=== PATIENT | female | born 1995 | race African-American/Black ===

== ENCOUNTER 2018-05-10 15:17 | Observation (INO) | payer MEDICAID ==
[~2018-05-10] VITALS: Ht 170.2 cm; Wt 98.0 kg
[2018-05-10 16:50] LABS: CLARITY URINE CLOUDY (CLEAR); COLOR URINE YELLOW (YELLOW); KETONES URINE 3+ (NEGATIVE); LEUKOCYTE ESTERASE URINE 2+ (NEGATIVE); NITRITE URINE NEGATIVE (NEGATIVE); OCCULT BLOOD URINE NEGATIVE (NEGATIVE); PROTEIN URINE 1+ (NEGATIVE); SPECIFIC GRAVITY URINE 1.029 (1.005-1.030)
[2018-05-10] MEDS ORDERED: LACTATED RINGERS 1,000 ML IV SCH (17:45)
[2018-05-10] MEDS ORDERED: CEFAZOLIN 2,000 MG in DEXT 5% WATER 100 ML IV SCH (17:45)
[2018-05-10] MEDS ORDERED: ACETAMINOPHEN 500MG TABLET PO NR (20:30)
== END 2018-05-10 20:55 | disposition home or self-care (01) ==
LOC: 8 EST LDRP 15:17
PROVIDERS: ADMIT Obstetrics & Gynecology; ATTEND Obstetrics & Gynecology
DX: O26.893 Other specified pregnancy related conditions, third trimester (principal); R10.30 Lower abdominal pain, unspecified; M54.5 Low back pain; Z3A.29 29 weeks gestation of pregnancy
CPT/HCPCS: 76805; 76818; 81003; 96365; 99281; G0378; J0690; J7060; 96360; 96361

== ENCOUNTER 2018-05-15 13:08 | Observation (INO) | payer MEDICAID ==
[~2018-05-15] VITALS: Ht 170.2 cm; Wt 120.7 kg
[2018-05-15] MEDS ORDERED: PNV1TABL50 PO (14:09)
[2018-05-15] MEDS ORDERED: RANI150C12 PO (14:09)
[2018-05-15 15:03] LABS: CLARITY URINE CLEAR (CLEAR); COLOR URINE AMBER (YELLOW); KETONES URINE TRACE (NEGATIVE); LEUKOCYTE ESTERASE URINE NEGATIVE (NEGATIVE); NITRITE URINE NEGATIVE (NEGATIVE); OCCULT BLOOD URINE 2+ (NEGATIVE); PROTEIN URINE 1+ (NEGATIVE); SPECIFIC GRAVITY URINE 1.031 (1.005-1.030)
== END 2018-05-15 15:45 | disposition home or self-care (01) ==
LOC: 8 EST LDRP 13:08
PROVIDERS: ADMIT Specialist; ATTEND Specialist
DX: O62.9 Abnormality of forces of labor, unspecified (principal); O26.893 Other specified pregnancy related conditions, third trimester; R30.9 Painful micturition, unspecified; N89.8 Other specified noninflammatory disorders of vagina; Z3A.30 30 weeks gestation of pregnancy
CPT/HCPCS: 81003; 99281; G0378

== ENCOUNTER 2018-05-23 00:54 | Observation (INO) | payer MEDICAID ==
[~2018-05-23] VITALS: Ht 170.2 cm; Wt 120.7 kg
[~2018-05-23 00:54] MED LIST: PNV1TABL50 PO; RANI150C12 PO
[2018-05-23] MEDS ORDERED: LACTATED RINGERS 1,000 ML IV SCH (02:30)
[2018-05-23] MEDS ORDERED: CITRIC ACID/SODIUM CITRATE SOLN 30ML UDC PO NR (02:45)
== END 2018-05-23 04:30 | disposition home or self-care (01) ==
LOC: 8 EST LDRP 00:54
PROVIDERS: ADMIT Obstetrics & Gynecology; ATTEND Obstetrics & Gynecology
DX: O26.893 Other specified pregnancy related conditions, third trimester (principal); R10.30 Lower abdominal pain, unspecified; M54.9 Dorsalgia, unspecified; Z3A.31 31 weeks gestation of pregnancy; O23.43 Unspecified infection of urinary tract in pregnancy, third trimester
CPT/HCPCS: 99281; G0378; 96360

== ENCOUNTER 2018-06-30 21:25 | Observation (INO) | payer MEDICAID ==
[~2018-06-30] VITALS: Ht 170.2 cm; Wt 122.5 kg
[2018-06-30] MEDS ORDERED: ACETAMINOPHEN 500MG TABLET PO NR (23:27)
[2018-06-30] MEDS ORDERED: PNV1TABL50 MT (23:39)
== END 2018-06-30 23:55 | disposition home or self-care (01) ==
LOC: 8 EST LDRP 21:25
PROVIDERS: ADMIT Obstetrics & Gynecology; ATTEND Obstetrics & Gynecology
DX: O62.9 Abnormality of forces of labor, unspecified (principal); Z3A.37 37 weeks gestation of pregnancy
CPT/HCPCS: 99281; G0378

== ENCOUNTER 2018-07-07 19:40 | Observation (INO) | payer MEDICAID ==
[~2018-07-07] VITALS: Ht 170.2 cm; Wt 122.5 kg
[~2018-07-07 19:40] MED LIST changes: +PNV1TABL50 MT
[2018-07-07 21:00] LABS: CLARITY URINE CLEAR (CLEAR); COLOR URINE YELLOW (YELLOW); KETONES URINE NEGATIVE (NEGATIVE); LEUKOCYTE ESTERASE URINE 2+ (NEGATIVE); NITRITE URINE NEGATIVE (NEGATIVE); OCCULT BLOOD URINE NEGATIVE (NEGATIVE); PH URINE 6.5 (4.5-8.0); PROTEIN URINE NEGATIVE (NEGATIVE); SPECIFIC GRAVITY URINE 1.006 (1.005-1.030); UROBILINOGEN URINE 0.2 E.U./dL (0.2-1.0)
[2018-07-07 21:13] LABS: *AMPHETAMINES SCREEN URINE NEGATIVE (NEGATIVE); *BARBITURATES SCREEN URINE NEGATIVE (NEGATIVE); *COCAINE SCREEN URINE NEGATIVE (NEGATIVE)
[2018-07-07 21:14] LABS: *BENZODIAZEPINES SCREEN URINE NEGATIVE (NEGATIVE); CANNABINOID URINE SCREEN NEGATIVE (NEGATIVE); METHADONE URINE SCREEN NEGATIVE (NEGATIVE); OPIATES URINE SCREEN NEGATIVE (NEGATIVE); PHENCYCLIDINE URINE SCREEN NEGATIVE (NEGATIVE)
[2018-07-07] MEDS ORDERED: LACTATED RINGERS 1,000 ML IV SCH (21:45)
[2018-07-07] MEDS ORDERED: CEFAZOLIN 2,000 MG in DEXT 5% WATER 100 ML IV SCH (22:00)
[2018-07-07] MEDS ORDERED: ACETAMINOPHEN 500MG TABLET PO NR (22:00)
== END 2018-07-07 22:30 | disposition home or self-care (01) ==
LOC: 8 EST LDRP 19:40
PROVIDERS: ADMIT Specialist; ATTEND Specialist
DX: O26.893 Other specified pregnancy related conditions, third trimester (principal); R10.9 Unspecified abdominal pain; Z3A.37 37 weeks gestation of pregnancy
CPT/HCPCS: 80305; 81003; 99281; G0378; J0690; J7060; 96360; 96361

== ENCOUNTER 2018-07-23 22:44 | Emergency (ER) | payer MEDICAID ==
[~2018-07-23] VITALS: Ht 170.2 cm; Wt 118.0 kg
[2018-07-23 23:15] VITALS: BP 123/76
[2018-07-24] MEDS ORDERED: BACITRACIN 15GM TUBE TOP ONE (00:15)
== END 2018-07-24 01:32 | disposition home or self-care (01) ==
LOC: ER 22:44
DX: Z48.00 Encounter for change or removal of nonsurgical wound dressing (principal); L90.5 Scar conditions and fibrosis of skin; Z98.890 Other specified postprocedural states; Z79.899 Other long term (current) drug therapy
CPT/HCPCS: 99283; Z7610